=== PATIENT | male | born 1945 | race Caucasian/White ===

== ENCOUNTER 2016-10-13 05:46 | Day surgery (SDC) | payer MEDICARE, OTHER ==
[2016-10-12 10:21] LABS: HEMOGLOBIN 12.7 g/dL (13.5-17.5); MCHC 31.8 g/dL (31.0-37.0); MEAN PLATELET VOLUME 11.9 fL (7.4-10.4); RBC 4.88 10x6/uL (4.20-6.10); RDW 15.8 % (11.5-14.5); WBC 4.6 10x3/uL (4.8-10.8)
[2016-10-12 10:35] LABS: CALC OSMOLALITY 290 mosm/kg (275-300); CALCIUM 8.9 mg/dL (8.5-10.1); CARBON DIOXIDE 27.2 mmol/L (21.0-32.0); CHLORIDE - SERUM 103 mmol/L (98-107); POTASSIUM - SERUM 4.7 mmol/L (3.5-5.1); SODIUM 137 mmol/L (136-145); UREA NITROGEN 24 mg/dL (7-18); eGFR NON AFRICAN AMERICAN 79 mL/min (90-120)
[2016-10-12 10:39] LABS: GLUCOSE 331 mg/dL (74-106)
[2016-10-12 10:45] LABS: PLATELET COUNT 93 10x3/uL (130-400)
[2016-10-12 11:21] LABS: PLATELET ESTIMATE DECREASED
[~2016-10-13] VITALS: Ht 182.9 cm; Wt 142.9 kg
[~2016-10-13 05:46] MED LIST: BACLOFEN20 M1 PO; CLOTRIM ANTIFUN15 GM TOPICAL; ELIQUIS2.5 MG PO; GLUCOPHAGE1000 MG PO; GLUCOTROL 5 MG T5 MG PO; HYDROCODONE-APA1 TAB PO; K-DUR20 MEQ PO; LANTUS INSULIN10 ML SC; LANTUS SOL100 UNIT/1 SC; LASIX20 MG PO; LIPITOR80 MG PO; NAPROSYN500 MG PO; NOVOLOG100 U/M1 SC; PERCOCET 10/3251 TA1 PO; PRINIVIL20 MG PO; REQUIP0.25 MG PO; TOPROL XL200 MG PO; ZOLOFT100 MG PO
[2016-10-13 07:20] VITALS: BP 102/72; Ht 182.9 cm; Wt 142.9 kg
[2016-10-13] MEDS ORDERED: HYDROCODONE-APA1 TAB PO (09:54)
--- NOTE | 2016-10-13 10:11 | NUR ---
THE PATIENT DENIES PAIN HOWEVER HAS RESTLESS LEG SYNDROME
--- NOTE | 2016-10-13 11:54 | NUR ---
1120 IV DC WITH CATHER TIP INTACT
--- NOTE | 2016-10-17 18:57 | OP ---
PATIENT NAME: JASBIR JESSICA MEDICAL RECORD: [id number] :47 LOCATION:[facility] ADMISSION DATE: SURGEON: AMY BHATIA MD DATE OF OPERATION: 10/13/2016 DATE OF OPERATION: 10/13/2016. PREOPERATIVE DIAGNOSES: 1. Rotator cuff tear of the right shoulder. 2. Impingement syndrome of the right shoulder. 3. Acromioclavicular arthritis of the right shoulder. POSTOPERATIVE DIAGNOSES: 1. Rotator cuff tear of the right shoulder. 2. Impingement syndrome of the right shoulder. 3. Acromioclavicular arthritis of the right shoulder. PROCEDURES: 1. Arthroscopic rotator cuff repair of the right shoulder 2. Arthroscopic distal clavicle excision of the right shoulder 3. Arthroscopic subacromial decompression of the right shoulder. 4. Arthroscopic biceps tenotomy. SURGEON: Amy Bhatia MD ANESTHESIA: General. INTRAOPERATIVE COMPLICATIONS: None. SUMMARY OF PATHOLOGIC FINDINGS: Consistent with the preoperative diagnosis and MRI. The patient had full thickness rotator cuff tearing, impingement syndrome as well as acromioclavicular arthritis. OPERATIVE SUMMARY IN DETAIL: After obtaining the appropriate preoperative orthopedic surgery consent as well as anesthetic consultation, evaluation and clearance, the patient was brought to the operating room and placed on the operating table in supine position. After general laryngeal mask was administered, the patient was placed in left lateral decubitus position. All pressure points were well padded to include down leg peroneal pad as well as axillary roll. The patient was held firmly to the operating table using the vacuum pack suction system. Right upper extremity and shoulder were prepped and draped in routine sterile fashion. The arm was held in the [employer] traction boom at 30 degrees of forward flexion, 30 degrees of abduction with 10 pounds of traction laterally. Arthroscopy was established in the glenohumeral joint from a posterior portal. Anterior portal was established in the anterior safe interval. Diagnostic arthroscopy revealed the above findings. A transarthroscopic rotator cuff tear portal was created. The rotator cuff torn fibers were debrided and decortication was carried out on the articular aspect of the supraspinatus tendinous footprint. After this, the biceps tendon was noted to be attritionally torn and so full biceps tenotomy was completed. Having completed the biceps tenotomy, attention was turned to the subacromial space. While on subacromial space, a polyp tissue ablation system was utilized to denude the undersurface of the acromion of all soft tissue elements. A 5-0 barrel bur was used to perform acromioplasty at the level of acromioclavicular joint and the distal clavicle was excised for 1 cm through separate arthroscopic OPERATIVE REPORT [id number] JASBIR JESSICA portal. Having completed this, attention was turned to the rotator cuff tear. A single inverted mattress #2 FiberTape was then anchored laterally with a 5.5 SwiveLock from [employer]. Having completed this, arthroscopy portals were closed in routine interrupted fashion using 4-0 Prolene. Sterile dressings were applied. The patient was awakened and taken to the recovery room in stable condition. All final needle and sponge counts were correct. TRANSINT:[id number] Voice Confirmation ID: [id number] DOCUMENT ID: [id number] SRIRAM ZEE, AMY HENDRICKSON at 1857 CC: [id number] DICTATION DATE: 10/17/16 0855 ORTHOTIC/PROSTHETIC PRACTITIONER: 10/17/16 1145 [facility] 10/13/16 [facility] [address] [place] [address]
== END 2016-10-13 11:30 | disposition home or self-care (01) ==
LOC: D.OPS 05:46 → D.PAN 08:45 → D.OPS 11:30
PROVIDERS: Anesthesiology
DX: M75.121 Complete rotator cuff tear or rupture of right shoulder, not specified as traumatic (principal); M75.41 Impingement syndrome of right shoulder; M13.811 Other specified arthritis, right shoulder

== ENCOUNTER 2016-10-18 15:29 | Emergency (ER) | payer MEDICARE, OTHER ==
[2016-10-13 07:20] VITALS: BMI 42.8
[2016-10-18 16:12] LABS: BASOPHILS 0.6 % (0.0-2.0); EOSINOPHILS 3.6 % (0-7); HEMATOCRIT 40.8 % (42.0-54.0); IMMATURE GRANULOCYTES 0.2 % (0-5); MCH 26.2 pg (26.0-34.0); MCHC 31.9 g/dL (31.0-37.0); MCV 82.3 fL (80.0-100.0); MEAN PLATELET VOLUME 11.1 fL (7.4-10.4); MONOCYTES 10.2 % (2-11); NEUTROPHILS 49.4 % (40-80); RBC 4.96 10x6/uL (4.20-6.10); RDW 15.9 % (11.5-14.5); WBC 5.3 10x3/uL (4.8-10.8)
[2016-10-18 16:16] LABS: PLATELET COUNT 112 10x3/uL (130-400)
[2016-10-18 16:48] LABS: ANION GAP 11.6 mmol/L (8-16); BILIRUBIN - TOTAL 0.42 mg/dL (0.2-1.3); CALCIUM 8.7 mg/dL (8.5-10.1); CREATININE - SERUM 1.1 mg/dL (0.6-1.3); POTASSIUM - SERUM 4.6 mmol/L (3.5-5.1); PROTEIN - SERUM 7.1 g/dL (6.4-8.2)
[2016-10-18 17:48] LABS: APPEARANCE CLEAR (CLEAR); COLOR YELLOW (YELLOW)
[2016-10-18 17:49] LABS: BILIRUBIN NEGATIVE (NEGATIVE); GLUCOSE 1000 mg/dL (NEGATIVE); KETONE NEGATIVE (NEGATIVE); LEUKOCYTE ESTERASE 1+ (NEGATIVE); NITRITE NEGATIVE (NEGATIVE); PROTEIN NEGATIVE (NEGATIVE); UROBILINOGEN NORMAL (NORMAL); WHITE CELLS - URINE 0-5 /hpf (0-5)
[2016-10-18 17:50] LABS: BACTERIA FEW /hpf (NONE SEEN); EPITHELIAL CELLS 0-5 /hpf (0-5)
== END 2016-10-18 19:00 | disposition left against medical advice (07) ==
LOC: D.ER 15:29
PROVIDERS: Emergency Medicine
DX: R60.0 Localized edema (principal)

== ENCOUNTER 2017-01-03 15:51 | Emergency (ER) | payer MEDICARE, OTHER ==
[2016-10-13 07:20] VITALS: BMI 42.8
[2017-01-03 17:24] LABS: BASOPHILS 0.4 % (0-2); EOSINOPHILS 2.3 % (0-7); HEMATOCRIT 38.8 % (42.0-54.0); HEMOGLOBIN 12.4 g/dL (13.5-17.5); IMMATURE GRANULOCYTES 0.2 % (0-5); LYMPHOCYTES 26.5 % (15-50); MCH 26.7 pg (26.0-34.0); MCV 83.4 fL (80.0-100.0); MONOCYTES 10.1 % (2-11); NEUTROPHILS 60.5 % (40-80); PLATELET COUNT 90 10x3/uL (130-400); RBC 4.65 10x6/uL (4.20-6.10); RDW 15.8 % (11.5-14.5); WBC 4.8 10x3/uL (4.8-10.8)
[2017-01-03 17:51] LABS: ALBUMIN 3.2 g/dL (3.4-5.0); ALKALINE PHOSPHATASE 168 U/L (46-116); ALT (SGPT) 44 U/L (10-68); BILIRUBIN - TOTAL 0.63 mg/dL (0.2-1.3); CALC OSMOLALITY 283 mosm/kg (275-300); CALCIUM 9.1 mg/dL (8.5-10.1); CARBON DIOXIDE 24.5 mmol/L (21.0-32.0); CHLORIDE - SERUM 104 mmol/L (98-107); GLUCOSE 333 mg/dL (74-106); POTASSIUM - SERUM 4.6 mmol/L (3.5-5.1); PROTEIN - SERUM 7.3 g/dL (6.4-8.2); SODIUM 135 mmol/L (136-145); UREA NITROGEN 16 mg/dL (7-18); eGFR NON AFRICAN AMERICAN 78 mL/min (90-120)
== END 2017-01-03 18:00 | disposition home or self-care (01) ==
LOC: D.ER 15:51
PROVIDERS: Nurse Practitioner Family
DX: M54.5 Low back pain (principal); L02.511 Cutaneous abscess of right hand

== ENCOUNTER 2017-01-10 14:31 | Emergency (ER) | payer MEDICARE, OTHER ==
[2016-10-13 07:20] VITALS: BMI 42.8
[2017-01-10 16:06] LABS: BASOPHILS 0.3 % (0-2); EOSINOPHILS 1.6 % (0-7); HEMATOCRIT 41.2 % (42.0-54.0); HEMOGLOBIN 13.4 g/dL (13.5-17.5); IMMATURE GRANULOCYTES 0.1 % (0-5); MCHC 32.5 g/dL (31.0-37.0); MCV 83.1 fL (80.0-100.0); MEAN PLATELET VOLUME 11.5 fL (7.4-10.4); PLATELET COUNT 149 10x3/uL (130-400); RBC 4.96 10x6/uL (4.20-6.10); RDW 15.9 % (11.5-14.5); WBC 6.9 10x3/uL (4.8-10.8)
[2017-01-10 16:45] LABS: ALBUMIN 3.5 g/dL (3.4-5.0); ALKALINE PHOSPHATASE 136 U/L (46-116); ALT (SGPT) 40 U/L (10-68); BILIRUBIN - TOTAL 0.59 mg/dL (0.2-1.3); CALC OSMOLALITY 274 mosm/kg (275-300); CALCIUM 9.2 mg/dL (8.5-10.1); CHLORIDE - SERUM 105 mmol/L (98-107); CREATININE - SERUM 1.3 mg/dL (0.6-1.3); POTASSIUM - SERUM 5.1 mmol/L (3.5-5.1); PROTEIN - SERUM 7.2 g/dL (6.4-8.2); SODIUM 135 mmol/L (136-145); UREA NITROGEN 25 mg/dL (7-18); eGFR NON AFRICAN AMERICAN 58 mL/min (90-120)
[2017-01-10 16:46] LABS: GLUCOSE 120 mg/dL (74-106)
[2017-01-10 16:55] LABS: CKMB 2.1 U/L (0.0-3.6); CREATINE KINASE 169 UL (21-232); TROPONIN-I 0.023 ng/mL (0.000-0.060)
[2017-01-10 17:33] LABS: APPEARANCE CLEAR (CLEAR); BILIRUBIN NEGATIVE (NEGATIVE); COLOR YELLOW (YELLOW); GLUCOSE NEGATIVE (NEGATIVE); KETONE NEGATIVE (NEGATIVE); LEUKOCYTE ESTERASE TRACE (NEGATIVE); NITRITE NEGATIVE (NEGATIVE); PROTEIN NEGATIVE (NEGATIVE); SPECIFIC GRAVITY 1.015 (1.005-1.020); UROBILINOGEN NORMAL (NORMAL)
[2017-01-10 17:35] LABS: BACTERIA FEW /hpf (NONE SEEN); RED CELLS - URINE OCC /hpf (0-5); WHITE CELLS - URINE 0-5 /hpf (0-5)
[2017-01-10 17:36] LABS: UDS - AMPHET NEGATIVE QUAL (NEGATIVE); UDS - BARB NEGATIVE QUAL (NEGATIVE); UDS - BENZO NEGATIVE QUAL (NEGATIVE); UDS - COCAINE NEGATIVE QUAL (NEGATIVE); UDS - METH NEGATIVE QUAL (NEGATIVE); UDS - OPIATE POSITIVE QUAL (NEGATIVE); UDS - PCP NEGATIVE QUAL (NEGATIVE); UDS - THC NEGATIVE QUAL (NEGATIVE)
== END 2017-01-10 18:15 | disposition home or self-care (01) ==
LOC: D.ER 14:31
PROVIDERS: Emergency Medicine; Nurse Practitioner Family
DX: R53.1 Weakness (principal); E11.9 Type 2 diabetes mellitus without complications; I95.1 Orthostatic hypotension; Z95.1 Presence of aortocoronary bypass graft

== ENCOUNTER 2017-06-06 10:18 | Emergency (ER) | payer MEDICARE, OTHER ==
[2016-10-13 07:20] VITALS: BMI 42.8
[2017-06-06 11:15] LABS: BASOPHILS 0.5 % (0-2); HEMATOCRIT 39.4 % (42.0-54.0); HEMOGLOBIN 12.7 g/dL (13.5-17.5); IMMATURE GRANULOCYTES 0.3 % (0-5); LYMPHOCYTES 16.1 % (15-50); MCH 25.4 pg (26.0-34.0); MCHC 32.2 g/dL (31.0-37.0); MCV 78.8 fL (80.0-100.0); MEAN PLATELET VOLUME 11.1 fL (7.4-10.4); MONOCYTES 8.2 % (2-11); NEUTROPHILS 73.9 % (40-80); PLATELET COUNT 134 10x3/uL (130-400); RDW 16.3 % (11.5-14.5)
[2017-06-06 11:23] LABS: ALBUMIN 3.1 g/dL (3.4-5.0); ANION GAP 16.3 mmol/L (8-16); BILIRUBIN - TOTAL 0.3 mg/dL (0.2-1.3); CALCIUM 9.2 mg/dL (8.5-10.1); CARBON DIOXIDE 21.5 mmol/L (21.0-32.0); CREATININE - SERUM 1.2 mg/dL (0.6-1.3); POTASSIUM - SERUM 4.8 mmol/L (3.5-5.1); PROTEIN - SERUM 7.4 g/dL (6.4-8.2)
[2017-06-06 11:52] LABS: APPEARANCE CLEAR (CLEAR); BILIRUBIN NEGATIVE (NEGATIVE); COLOR YELLOW (YELLOW); GLUCOSE 1000 mg/dL (NEGATIVE); KETONE NEGATIVE (NEGATIVE); NITRITE NEGATIVE (NEGATIVE); PROTEIN NEGATIVE (NEGATIVE); UROBILINOGEN NORMAL (NORMAL)
[2017-06-06 12:02] LABS: BACTERIA FEW /hpf (NONE SEEN); EPITHELIAL CELLS 0-5 /hpf (0-5); HYALINE CAST RARE /lpf (NONE SEEN); MUCUS <1+ /lpf (NONE SEEN); WHITE CELLS - URINE OCC /hpf (0-5)
== END 2017-06-06 13:33 | disposition home or self-care (01) ==
LOC: D.ER 10:18
PROVIDERS: Emergency Medicine
DX: E86.0 Dehydration (principal); E11.9 Type 2 diabetes mellitus without complications; Z79.4 Long term (current) use of insulin; F17.200 Nicotine dependence, unspecified, uncomplicated